=== PATIENT | female | born 1990 | race Caucasian/White ===

== ENCOUNTER → 2024-10-13 10:19 | Outpatient (REF) | payer OTHER, SELFPAY ==
[2024-10-13 11:21] LABS: Beta HCG Quantitative 12814.00 mIU/ml
== END ==
LOC: REG 10:19
PROVIDERS: ATTENDING PHYSICIAN Nurse Practitioner Family
DX: O26.859 Spotting complicating pregnancy, unspecified trimester (principal)
CPT/HCPCS: 36415; 84702

== ENCOUNTER → 2024-10-15 08:29 | Outpatient (REF) | payer OTHER, SELFPAY ==
[2024-10-15 10:33] LABS: Beta HCG Quantitative 17417.00 mIU/ml
== END ==
LOC: REG 08:29
PROVIDERS: ATTENDING PHYSICIAN Nurse Practitioner Family
DX: O26.859 Spotting complicating pregnancy, unspecified trimester (principal)
CPT/HCPCS: 36415; 84702

== ENCOUNTER → 2024-10-16 10:07 | Outpatient (REF) | payer OTHER, SELFPAY | LOC: RAD 10:07 | PROVIDERS: ATTENDING PHYSICIAN Obstetrics & Gynecology | DX: O26.851 Spotting complicating pregnancy, first trimester (principal) | CPT/HCPCS: 76801; 76817 ==

== ENCOUNTER → 2024-12-01 12:10 | Outpatient (REF) | payer OTHER, SELFPAY | LOC: PNTC 12:10 | PROVIDERS: ATTENDING PHYSICIAN Obstetrics & Gynecology | DX: Z36.0 Encounter for antenatal screening for chromosomal anomalies (principal); Z36.82 Encounter for antenatal screening for nuchal translucency; Z3A.13 13 weeks gestation of pregnancy | CPT/HCPCS: 76801; 76813 ==

== ENCOUNTER → 2025-01-26 13:19 | Outpatient (REF) | payer OTHER, SELFPAY | LOC: PNTC 13:19 | PROVIDERS: ATTENDING PHYSICIAN Obstetrics & Gynecology | DX: Z34.92 Encounter for supervision of normal pregnancy, unspecified, second trimester (principal); Z36.86 Encounter for antenatal screening for cervical length; Z36.3 Encounter for antenatal screening for malformations | CPT/HCPCS: 76805; 76817 ==